=== PATIENT | male | born 1945 | race Caucasian/White ===

== ENCOUNTER → 2017-07-30 | Day surgery (SDC) | payer OTHER ==
[~2017-07-30] MED LIST: ALBUTEROL 3 ML DEYVIAL ONE; EPINEPHrine 1 MG/10 ML SYR IVP ONE; FLUMAZENIL 0.5 MG/5 ML MDV IVP ONE; LIDOCAINE HCL 4% TOPICAL SOLN 50ML ONE; MIDAZOLAM 2 MG/2 ML VIAL ONE; NALOXONE HCL 0.4 MG/ML INJ ONE; fentaNYL 100 MCG/2 ML INJ ONE
[2017-07-30 13:18] VITALS: PULSE 65
--- NOTE | 2017-07-30 14:36 | PDHPUP ---
History & Physical Update H&P update statement: This history and physical update is based on an assessment of the patient which was completed after admission or registration (within 24 hours), but prior to the surgery/procedure. H&P update: H&P reviewed & patient examined, no change in patient's condition since H&P completed
--- NOTE | 2017-07-30 14:36 | PDPROPOC ---
Sedation Plan of Care Sedation Plan of Care: vital signs stable, mental status noted, patient educated of risks, benefits, alternatives, patient can tolerate sedation ASA Classification: ASA 2 Planned drugs: fentanyl, midazolam Mallampati Score: Class 2 Mallampati Reference Image: Patient passed 3-3-2 rule?: Yes
[2017-07-30 15:15] VITALS: RESP 14
--- NOTE | 2017-07-30 15:44 | BVPULMO ---
[facility]- Pulmonology Patient Name: Talha Mccabe Procedure Date: 07/30/2017 1:57 PM Patient Type: Outpatient Attending /BRYN Physician: Froy Kumar MD Procedure: Bronchoscopy Indications: Hemoptysis with abnormal CXR Providers: Froy uKmar MD Medicines: Lidocaine 4% via nebulizer with Albuterol 2.5 mg Complications: There were no complications. Vital signs and oxygen saturations on supplemental oxygen remained normal throughout the procedure. No immediate complications Procedure: After informed consent, a time out was performed. N95 masks were worn, and the procedure was done in a negative pressure room. The patient was given appropria te topical anesthesia and intravenous sedation. The fiberopic bronchoscope was pas sed via a bite block orally into the larynx and subsequently into the lower trachea bronchial tree. Throughout the procedure, the patient's blood pressure, pulse, and oxygen saturations were monitored continuously. The patient tolerated the proce dure well. Findings: The trachea was normal. The right side was normal. There were no significant secretions. On the left, the a left upper lobe and lingula were normal. The left lower lobe was erythematous possibly wit h some abnormal tissue at the orifice of the superior segment. However, soon as the scope was adva nced there was significant bleeding/oozing that persisted throughout the procedure and made visualiza tion very difficult. Fluoroscopy was used. Bronchial washings were taken from this area followed by a bronchial brush sample for cytologies. Endobronchial and transbronchial biopsies were then taken from the superior segment of the left lower lobe under fluoroscopic guidance. However, based on the problems with visualization it was unclear if appropriate tissue was actually sampled. Left Lung Abnormalities: Bronchoalveolar lavage was performed in the LLL superior segment (B6) of the lung. Post Op Diagnosis: Significant friability and bleeding at the orifice to the left lower lobe. Abno rmal tissue may or may not have been present. Estimated Blood Loss: Estimated blood loss was perhaps 10-15 mL. Estimated blood loss was minimal. Recommendation: - Await biopsy results. Attending Participation: I personally performed the entire procedure. Froy Kumar MD Froy Kumar MD 07/30/2017 3:43:48 PM Number of Addenda: 0 Note Initiated On: 07/30/2017 1:57 PM [email or web address]
[2017-07-30 15:51] VITALS: BP 110/74; O2SAT 98
[2017-07-30 17:07] VITALS: TEMP 97.5
== END | disposition home or self-care (01) ==
LOC: FSGY 12:41
PROVIDERS: ATTEND Internal Medicine Pulmonary Disease
PROC: 0BBB8ZX Excision of Left Lower Lobe Bronchus, Via Natural or Artificial Opening Endoscopic, Diagnostic (ICD-10-PCS; principal; 2017-07-30 14:00)
DX: R91.8 Other nonspecific abnormal finding of lung field (principal); C90.00 Multiple myeloma not having achieved remission; Z87.891 Personal history of nicotine dependence
CPT/HCPCS: J2250; J2310; J3010

== ENCOUNTER → 2018-08-01 | Outpatient (CLI) | payer OTHER ==
[~2018-08-01] MED LIST changes: -ALBUTEROL 3 ML DEYVIAL ONE; -EPINEPHrine 1 MG/10 ML SYR IVP ONE; -FLUMAZENIL 0.5 MG/5 ML MDV IVP ONE; +IOPAMIDOL (ISOVUE 370) 100 ML BTL IV ONE; -LIDOCAINE HCL 4% TOPICAL SOLN 50ML ONE; -MIDAZOLAM 2 MG/2 ML VIAL ONE; -NALOXONE HCL 0.4 MG/ML INJ ONE; -fentaNYL 100 MCG/2 ML INJ ONE
== END ==
LOC: FIMAGING 13:03
PROVIDERS: ATTEND Nurse Practitioner
DX: R91.1 Solitary pulmonary nodule (principal); C90.01 Multiple myeloma in remission
CPT/HCPCS: 71275; Q9967